=== PATIENT | female | born 1950 | race Caucasian/White ===

== ENCOUNTER 2024-05-25 01:10 | Outpatient (CLI) | payer MEDICARE | END 2024-05-25 23:59 | disposition EMS.NT | LOC: EMS 01:10 | DX: M25.561 Pain in right knee (principal); M25.461 Effusion, right knee; Z91.81 History of falling ==

== ENCOUNTER 2024-05-25 12:05 | Emergency (ER) | payer MEDICARE ==
--- NOTE | 2024-05-25 12:26 | ED Physician Documentation ---
History of Present Illness - Stated complaint Stated Complaint: FALL, RT KNEE PX - Chief complaint Chief Complaint: Trauma Ext - Additonal information Additional information: 74-year-old female with history of advanced MS and gait impairment presents emergency department for right knee pain. Patient says that she had a mechanical ground-level fall yesterday evening she fell onto her right knee and did hit the right side of her face. She has mild bruising to her right upper eyelid and right upper lip. There is no loss of consciousness she is not any blood thinner no nausea or vomiting. She said that she has had no confusion or increased lethargy since the event. She says that her main pain is to her right knee with her significant swelling and there is significant pain with any sort of weightbearing activities. No history of previous injury or surgery to the right knee. PD PAST MEDICAL HISTORY - Past Medical History Past Medical History: Yes Cardiovascular: None Respiratory: COPD Neuro: Other Endocrine/Autoimmune: None GI: None PLASTER APPLICATOR: None : None HEENT: None Psych: None Musculoskeletal: Other Derm: None Other Past Medical History: ALS - Past Surgical History Past Surgical History: No - Present Medications Home Medications: Ambulatory Orders Medication Instructions Recorded Confirmed Acetaminophen [Tylenol] 500 mg PO Q4-6H PRN 05/25/24 05/25/24 Albuterol Sulf [Ventolin Hfa 1 - 2 puffs INH Q4HR PRN 05/25/24 05/25/24 Inhaler] Calcium Citrate 500 mg PO DAILY 05/25/24 05/25/24 Cholecalciferol [Vitamin D3] 25 mcg PO DAILY 05/25/24 05/25/24 Cyanocobalamin [Vitamin B-12] 1,000 mcg PO DAILY 05/25/24 05/25/24 Fluticasone/Umeclidin/Vilanter 1 each IH DAILY 05/25/24 05/25/24 [Trelegy Ellipta 100-62.5-25] [place]-3S/Dha/Epa/Fish Oil/D3 1 each PO DAILY 05/25/24 05/25/24 [[place]-3 + D Softgel] - Allergies Allergies/Adverse Reactions: Allergies Allergy/AdvReac Type Severity Reaction Status Date / Time No Known Drug Allergies Allergy Verified 05/25/24 12:10 - Social History Does the pt smoke?: Yes Smoking Status: Current every day smoker Does the pt drink ETOH?: Yes ETOH Use: Beer Does the pt have substance abuse?: No - Immunizations Immunizations are current?: No Immunizations: TDAP >10years/unknown, Other immun not current - POLST Patient has POLST: No PD ED PE NORMAL - Vitals Vital signs reviewed: Yes - General General: Alert and oriented X 3, No acute distress, Well developed/nourished - HEENT HEENT: PERRL, EOMI, Other (Mild ecchymosis to right eyebrow and right upper lip no abrasions or open wounds) - Neck Neck: No bony TTP, C-Spine cleared by NEXUS criteria - Cardiac Cardiac: RRR - Respiratory Respiratory: No respiratory distress - Abdomen Abdomen: Normal bowel sounds - Back Back: No CVA TTP - Derm Derm: Normal color, Warm and dry, No rash - Extremities Extremities: Other (Right lower extremity: Right knee swelling, pinpoint tenderness to the right lateral joint line, full passive range of motion full active range of motion negative anterior drawer test.) - Neuro Neuro: Alert and oriented X 3, torch operator 2-12 intact, No motor deficit, No sensory deficit, Normal speech Eye Opening: Spontaneous Motor: Obeys Commands Verbal: Oriented GCS Score: 15 - Psych Psych: Normal mood, Normal affect Results - Vitals Vitals: Vital Signs - 24 hr 05/25/24 05/25/24 12:11 15:06 Temperature 36.6 C 36.7 C Heart Rate 98 102 H Respiratory 16 18 Rate Blood Pressure 149/66 H 164/93 H O2 Saturation 98 96 Oxygen O2 Source Room air - Rads (name of study) Right knee x-ray Relevant Findings:: Final report received, EMP independent interpretation of test, Other (No acute bony abnormalities or findings) Cervical spine CT without Relevant Findings:: Final report received, EMP independent interpretation of test, Other (No subluxation no acute bony fractures or findings) Head CT without Relevant Findings:: Final report received, EMP independent interpretation of test, Other (No acute intracranial hemorrhages or abnormalities.) PD Medical Decision Making - ED course ED course: 74-year-old female presents emergency department for mechanical ground-level fall with head injury. Head CT was complete for further evaluation no intracranial hemorrhages or abnormalities cervical spine CT without was also complete and again no subluxations or acute bony fractures or findings are visualized. Her main complaint was her right knee pain. There was obvious swelling and pinpoint tenderness to the lateral aspect of the right knee. X-rays were complete for further evaluation and no acute bony abnormalities were visualized Patient was placed in an articulated knee immobilizer and was given contact for patient to follow-up with Ortho outpatient for further evaluation. She was offered a walker on her way out but kindly declined. Strict ER return precautions given patient to follow-up with Ortho. All questions answered patient safe for discharge at this time. Departure - Departure Disposition: 01 Home, Self Care Clinical Impression: Contusion of right knee, Ground-level fall, Closed head injury Instructions: ED Sprain Knee Follow-Up: CATIE BLACK MD [Physician No Access] - CATIE BLACK MD [Physician No Access] - Comments: Thank you for trusting us with your care. We have completed x-rays of your right knee. Not seeing any acute bony fractures or abnormalities but as we discussed x-rays do not reveal any ligament or soft tissue injury. I think he would benefit from following up with Ortho outpatient we have put in a knee brace on if you are finding this to be helpful and supportive. Knee pain I would keep this on until you are able to follow-up with Ortho. You can alternate between 1000 mg of Tylenol and 500 mg of Aleve every 8 hours every 12 hours for pain and discomfort do not take Aleve for longer than 5 to 7 days. Forms: PCP List Discharge Date/Time: 05/25/24 15:06
--- NOTE | 2024-05-25 14:14 | CT Report ---
PROCEDURE: Head WO INDICATIONS: GLF, head injry TECHNIQUE: Noncontrast 4.5 mm thick angled axial sections acquired from the foramen magnum to the vertex. For r adiation dose reduction, the following was used: automated exposure control, adjustment of mA and/or kV according to patient size. COMPARISON: None. FINDINGS: Image quality: Excellent. CSF spaces: Basal cisterns are patent. No extra-axial fluid collections. Ventricles are normal in size and shape. Brain: No midline shift. No intracranial masses or hemorrhage. Key-white matter interface is norm al. Intracranial carotid calcifications. Age-related volume loss and small vessel ischemic change. Skull and face: Calvarium and visualized facial bones are intact, without suspicious lesions. Sinuses: Visualized sinuses and mastoids are clear. IMPRESSION: No acute intracranial pathology. Reviewed by: Braulio Grijalva MD on 05/25/2024 2:13 PM PDT Approved by: Braulio Grijalva MD on 05/25/2024 2:13 PM PDT Station ID: [id number]
--- NOTE | 2024-05-25 14:16 | CT Report ---
PROCEDURE: Cervical Spine WO INDICATIONS: GLF TECHNIQUE: Noncontrast 3 mm thick sections acquired from the skull base to the T4 level. Sagittal and coronal r eformats were then constructed. For radiation dose reduction, the following was used: automated exp osure control, adjustment of mA and/or kV according to patient size. COMPARISON: None. FINDINGS: Image quality: Excellent. Bones: No fractures or dislocations. Visualized superior ribs are intact. Diffuse cervical spondyl itic change. Multilevel bony foraminal narrowing. Air-fluid level, left sphenoid sinus. Soft tissues: Prevertebral soft tissues are normal in thickness. No paravertebral hematomas. No ap ical pneumothoraces. Very severe biapical emphysematous change. IMPRESSION: 1. No acute cervical fracture or dislocation. 2. There is severe biapical emphysematous change. 3. Cervical spondylitic change with multilevel bony foraminal narrowing. 4. Left sphenoid sinus disease. Reviewed by: Braulio Grijalva MD on 05/25/2024 2:15 PM PDT Approved by: Braulio Grijalva MD on 05/25/2024 2:15 PM PDT Station ID: [id number]
--- NOTE | 2024-05-25 14:21 | XRAY Report ---
PROCEDURE: Knee 3V RT INDICATIONS: GLF, right knee inflammation, limited ROM TECHNIQUE: 3 views of the knee(s) were acquired. COMPARISON: None. FINDINGS: Bones: No fractures or dislocations. No suspicious bony lesions. Old bone infarct, proximal tibia. Soft tissues: No knee joint effusion. No suspicious soft tissue calcifications or masses. IMPRESSION: No acute bony abnormality. Reviewed by: Braulio Grijalva MD on 05/25/2024 2:20 PM PDT Approved by: Braulio Grijalva MD on 05/25/2024 2:20 PM PDT Station ID: [id number]
[2024-05-25] MEDS: KETOROLAC 15 MG/ML VIAL IM STA (15:00)
[2024-05-25 15:14] VITALS: BP 164/93; O2SAT 96
== END 2024-05-25 15:06 | disposition home or self-care (01) ==
LOC: ED 12:05
DX: S09.90XA Unspecified injury of head, initial encounter (principal); S80.01XA Contusion of right knee, initial encounter; W18.30XA Fall on same level, unspecified, initial encounter; J44.9 Chronic obstructive pulmonary disease, unspecified; G12.21 Amyotrophic lateral sclerosis; F17.200 Nicotine dependence, unspecified, uncomplicated; Z79.899 Other long term (current) drug therapy; Z79.51 Long term (current) use of inhaled steroids
CPT/HCPCS: 96372; 99283; 99284